=== PATIENT | female | born 1950 | race Caucasian/White ===

== ENCOUNTER 2023-11-09 08:04 | Day surgery (SDC) | payer MEDICARE, BC ==
[~2023-11-09 08:04] MED LIST: Lactated Ringers 1,000 ML IV SCH; Sodium Chloride 0.9% 10 ML Syringe FLUSH PRN; Sodium Chloride 0.9% 10 ML Syringe FLUSH SCH
[2023-11-09] MEDS ORDERED: fentaNYL 100 MCG/2 ML SDV ONE (10:18)
[2023-11-09] MEDS ORDERED: Propofol 200 MG/20 ML SDV ONE (10:19)
[2023-11-09] MEDS ORDERED: ceFAZolin 2 GM Vial ONE ×2 (10:19→12:08)
[2023-11-09] MEDS ORDERED: Lidocaine 1% 4 ML ONE (10:19)
[2023-11-09] MEDS ORDERED: Midazolam 1 MG/ML 2 ML SDV ONE (10:27)
[2023-11-09] MEDS ORDERED: Ropivacaine 0.5% 5 MG/ML 30 ML SDV ONE (10:29)
[2023-11-09] MEDS ORDERED: Lactated Ringers 1,000 ML IV ONE (12:15)
[2023-11-09] MEDS: Morphine 8 MG, EPINEPHrine 0.3 MG, Cefuroxime 750 MG, Ketorolac 30 MG, Sodium Chloride ... PRN ×10 (12:35→12:50)
[2023-11-09] MEDS: Tranexamic Acid 1,000 MG/10 ML Vial ONE ×2 (12:36→12:55)
[2023-11-09] MEDS: Vancomycin 1 GM SDV ONE ×2 (12:36→12:55)
[2023-11-09] MEDS ORDERED: dexmedeTOMIDine HCl 200 MCG/2 ML SDV ONE (13:28)
[2023-11-09] MEDS ORDERED: Dexamethasone 4 MG/ML 5 ML MDV ONE (13:28)
[2023-11-09] MEDS ORDERED: EPINEPHrine 1 MG/ML SDV ONE (13:28)
== END 2023-11-09 15:20 | disposition home or self-care (01) ==
LOC: JD.SDS 08:04
PROVIDERS: ATTEND Orthopaedic Surgery
DX: M17.12 Unilateral primary osteoarthritis, left knee (principal); E78.00 Pure hypercholesterolemia, unspecified; Z79.82 Long term (current) use of aspirin; Z79.899 Other long term (current) drug therapy
CPT/HCPCS: 0055T; 27447; 64447; 73560; 97161; C1713; C1776; J0171; J0690; J0697; J1100; J1885; J2250; J2270; J2704; J2795; J3010; J3370; J7030; J7120; 01402; 99100; J3490